=== PATIENT | male | born 1985 | race Caucasian/White ===

== ENCOUNTER 2019-06-10 13:31 | Emergency (ER) | payer OTHER ==
[~2019-06-10] VITALS: Ht 182.9 cm; Wt 111.1 kg
[2019-06-10 14:52] VITALS: BP 137/74
== END 2019-06-10 14:52 | disposition home or self-care (01) ==
LOC: ER 13:31
DX: M25.531 Pain in right wrist (principal); M79.641 Pain in right hand; I10 Essential (primary) hypertension; G43.909 Migraine, unspecified, not intractable, without status migrainosus; F17.200 Nicotine dependence, unspecified, uncomplicated